=== PATIENT | female | born 1995 | race Caucasian/White ===

== ENCOUNTER → 2018-03-06 13:11 | Outpatient (CLI) | payer MEDICAID, SELFPAY ==
[2018-03-06 17:35] LABS: Chlamydia Trachomatis by PCR Negative (Negative); Neisserai gonorrhoeae by PCR Negative (Negative); Probe Check PASS; Sample Adequacy Control PASS; Specimen Processing Control PASS
[2018-03-13 11:14] LABS: HPV Reflexed? NOT INDICATED
== END ==
PROVIDERS: Family Provider Pediatrics; PCP Pediatrics; Visit Provider Obstetrics & Gynecology
DX: Z12.4 Encounter for screening for malignant neoplasm of cervix (principal); Z11.3 Encounter for screening for infections with a predominantly sexual mode of transmission
CPT/HCPCS: 87491; 87591; 88175; G0145

== ENCOUNTER → 2018-03-26 11:46 | Outpatient (CLI) | payer MEDICAID, SELFPAY ==
[2018-03-26 15:29] LABS: Color, Urine Yellow (Yellow); Glucose, Dipstick Normal (Normal); Ketone-Dipstick Negative (Negative); Leukocyte Esterase-Dipstick Negative /ul (Negative); Nitrite-Dipstick Negative (Negative); Occult Blood-Urine Negative /ul (Negative); Protein-Dipstick Negative (Negative); Specific Gravity, Urine 1.005 (1.002-1.030); Urine Bilirubin Dipstick Negative (Negative); Urine Clarity Clear (Clear); Urine Urobilinogen Normal (Normal)
[2018-03-26 15:42] LABS: Thyroid Stim Hormone (TSH) 1.34 uIU/mL (0.358-3.74)
[2018-03-26 15:45] LABS: Absolute Neutrophil Count 4.3 X10^3/uL (2.0-7.7); Basophil# 0.01 X10^3/uL; Basophil% 0.2 % (0-1); Eosinophil# 0.06 X10^3/uL; Hematocrit 40.7 % (37-47); Hemoglobin 13.3 g/dl (12.0-15.0); Lymphocyte % 22.4 % (19-41); Mean Corp Hgb Conc 32.7 g/gl (32-36); Mean Corpuscular Hgb 29.4 pg (27.0-32.0); Mean Corpuscular Volume 89.8 fL (81-99); Mean Platelet Vol. 11.1 fl (6.2-12.0); Monocyte# 0.48 X10^3/uL; Monocyte% 7.7 % (0-10); Neutrophil % 68.5 % (47-70); Platelet Count 202 K/mm3 (150-450); RBC Distribution Width CV 12.7 % (11.6-14.6); RBC Distribution Width SD 40.8 fl (35.1-43.9); Red Blood Count 4.53 M/mm3 (4.2-5.4); White Blood Count 6.3 K/mm3 (4.4-11.0)
[2018-03-26 15:48] LABS: Amphetamine Urine VISTA NEGATIVE (<1000 ng/mL); Barbiturate Urine VISTA NEGATIVE (< 200 ng/mL); Benzodiazepine Urine VISTA NEGATIVE (< 200 ng/mL); Cocaine Urine VISTA NEGATIVE (< 300 ng/mL); Ecstacy Urine VISTA NEGATIVE (< 500 ng/mL); Methadone Urine VISTA NEGATIVE (< 300 ng/mL); PCP Urine VISTA NEGATIVE (< 25 ng/mL); THC Urine VISTA NEGATIVE (< 50 ng/mL); Vista UDS pH Range 7
[2018-03-26 15:57] LABS: POSITIVE COUNT NO; POSITIVE DIFFERENTIAL NO; POSITIVE MORPHOLOGY NO
[2018-03-26 16:15] LABS: COTININE Drug Screen Negative (<200 ng/mL)
[2018-03-26 16:24] LABS: HIV - WCH Non-Reactive (Nonreactive); Rubella IgG 393.4 IU/mL
[2018-03-28 03:49] LABS: Prenatal RPR NONREACTIVE (NONREACTIVE)
[2018-03-31 12:54] LABS: HEPATITIS B SURFACE AG Negative (Negative); Hep C Antibodies <0.1 s/co ratio (0.0-0.9); V-Zoster IgG (Immunity) 376 index (Immune >165)
== END ==
PROVIDERS: Visit Provider Obstetrics & Gynecology
DX: Z34.81 Encounter for supervision of other normal pregnancy, first trimester (principal)
CPT/HCPCS: 36415; 80307; 81002; 84443; 85025; 86703; 86762; 86787; 86803; 87340

== ENCOUNTER → 2018-08-01 08:50 | Outpatient (CLI) | payer MEDICAID, SELFPAY ==
[2018-08-01 12:02] LABS: Hematocrit 35.2 % (37-47); Hemoglobin 11.7 g/dl (12.0-15.0); Mean Corp Hgb Conc 33.2 g/gl (32-36); Mean Corpuscular Hgb 30.8 pg (27.0-32.0); Mean Corpuscular Volume 92.6 fL (81-99); Mean Platelet Vol. 10.8 fl (6.2-12.0); Platelet Count 185 K/mm3 (150-450); RBC Distribution Width CV 12.6 % (11.6-14.6); RBC Distribution Width SD 42.5 fl (35.1-43.9); White Blood Count 7.8 K/mm3 (4.4-11.0)
[2018-08-01 12:03] LABS: Scan Indicated on CBC? Y/N NO
[2018-08-01 12:05] LABS: Glucose Challenge Gest 1H 50g 84 mg/dL (70-140)
== END ==
PROVIDERS: Visit Provider Obstetrics & Gynecology
DX: Z34.82 Encounter for supervision of other normal pregnancy, second trimester (principal)
CPT/HCPCS: 36415; 82950; 85027; 86850

== ENCOUNTER → 2018-09-26 11:09 | Outpatient (CLI) | payer MEDICAID, SELFPAY ==
[2017-06-01 16:16] VITALS: BMI 22.6
== END ==
PROVIDERS: Visit Provider Obstetrics & Gynecology
DX: Z36.85 Encounter for antenatal screening for Streptococcus B (principal)
CPT/HCPCS: 87081

== ENCOUNTER 2018-10-27 19:50 | Outpatient (CLI) | payer MEDICAID, SELFPAY ==
[2018-10-27 21:09] LABS: ROM Internal Control Test YES-OK TO RESULT pt. (Internal QC); ROM Patient Test Negative (Negative); Record Kit Lot#, ROM+ J7836
[2018-10-27 22:28] VITALS: BMI 26.7
--- NOTE | 2018-11-05 12:29 | OB.TRI.NOTE ---
History of Present Illness Date of Service: 10/27/18 Was patient seen by the physician?: No Reason For Visit: R/O LABOR Date of Service: 10/27/18 Final MARCO A: 10/21/18 Final MARCO A Source: US <20 weeks Gestational age: 40 Weeks and 6 Days History of Present Illness: 23 yo female presents for labor check. Scheduled for postdates induction soon. Allergies No Known Allergies Allergy (Verified 10/28/18 07:39) Laboratory Studies: Laboratory Tests 10/27/18 Range/Units 20:35 Vag Amniotic Fld Detect Negative (Negative) NST - FHR Rate Baby A Variability:: Moderate Accelerations:: 15 x 15 Decelerations:: None NST Reactive:: Yes, Appropriate for gestational age FHR Category:: Category I Uterine Activity:: irreg UCs. Impression/Plan False labor NST reactive Home. Return for induction of labor as planned.
== END 2018-10-27 23:00 | disposition home or self-care (01) ==
LOC: WPOUT 20:13 → WP 20:16
PROVIDERS: Visit Provider Obstetrics & Gynecology
DX: O47.1 False labor at or after 37 completed weeks of gestation (principal); Z3A.40 40 weeks gestation of pregnancy
CPT/HCPCS: 59025; 59050; 84112; 99218; G0378

== ENCOUNTER 2018-10-28 07:00 | Inpatient (IN) | payer MEDICAID, SELFPAY ==
[2017-06-01 16:16] VITALS: BMI 22.6
[2018-10-27 22:28] VITALS: BMI 26.7
[2018-10-28 07:38] VITALS: BMI 26.7
[2018-10-28] MEDS: Lactated Ringers 1,000 ML 50 ML IV ×2 (07:45→14:00)
[2018-10-28 07:50] LABS: Absolute Lymphocyte Count 1.52 X10^3/ul (0.83-4.51); Absolute Neutrophil Count 4.2 X10^3/uL (2.0-7.7); Basophil# 0.01 X10^3/uL; Basophil% 0.2 % (0-1); Eosinophil# 0.05 X10^3/uL; Eosinophils% 0.8 % (0-5); Hematocrit 35.8 % (37-47); Hemoglobin 11.6 g/dl (12.0-15.0); Lymphocyte # 1.52 X10^3/ul (4.0); Lymphocyte % 23.7 % (19-41); Mean Corp Hgb Conc 32.4 g/gl (32-36); Mean Corpuscular Hgb 28.6 pg (27.0-32.0); Mean Corpuscular Volume 88.4 fL (81-99); Mean Platelet Vol. 11.4 fl (6.2-12.0); Monocyte# 0.59 X10^3/uL; Monocyte% 9.2 % (0-10); Neutrophil # 4.24 X10^3/uL (2.7-7.7); Neutrophil % 65.9 % (47-70); Platelet Count 149 K/mm3 (150-450); RBC Distribution Width CV 12.7 % (11.6-14.6); RBC Distribution Width SD 40.6 fl (35.1-43.9); Red Blood Count 4.05 M/mm3 (4.2-5.4); White Blood Count 6.4 K/mm3 (4.4-11.0)
[2018-10-28] MEDS: Oxytocin 30 units/NS 500 ml 30 UNITS/500 ML IV.SOLN IV (07:55)
[2018-10-28 07:58] LABS: POSITIVE COUNT NO; POSITIVE DIFFERENTIAL NO; POSITIVE MORPHOLOGY NO
[2018-10-28] MEDS: Nalbuphine 10 MG/ML Ampul IV (12:01)
[2018-10-28] MEDS: fentaNYL-bupivacaine (epidural) 100 ML BAG EPIDURAL (14:10)
[2018-10-28] MEDS: Ondansetron 4 MG/2 ML Vial IV (15:54)
[2018-10-28] MEDS: Oxytocin 30 units/NS 500 ml 30 UNITS/500 ML IV.SOLN 334 UNITS IV (16:50)
--- NOTE | 2018-10-28 17:10 | PCM.OB.VAG ---
Vaginal Delivery Maternal Presentation: Medically Indicated Induction 41 weeks ega for induction of labor Method of Induction: Pitocin Medical Reason for Induction: Post term Amniotic Membrane Rupture Type: Artificial Rupture of Membrane time: 803 Amniotic Fluid Description: Clear Final MARCO A: 10/21/18 Final MARCO A Source: US <20 weeks Gestational age: 41 Weeks and 0 Days Date of Procedure: 10/28/18 Pre-Operative Diagnosis: Labor Post-Operative Diagnosis: same Surgery/ Procedure Performed: Spontaneous Vaginal Delivery Anesthesiologist: Alex Portillo Type of Anesthesia: Epidural Description of Procedure: Progressed with pitocin induction to FD then pushed over 10 contractions to deliver a live female without complication. Nares and mouth were suctioned at delivery. Delayed cord clamping was employed. There was an active cry within the first minute. Apgars were 8/9. The placenta delivered spontaneously intact with a centrally located 3VC. The uterus contracted well. Inspection revealed an intact cervix and upper vagina. A small first degree posterior vaginal/perneal tear was repaired with 2-0 vicryl suture. A small first degree left periurethral tear was repaired with 3-0 vicryl. Hemostasis was good. Presentation: Vertex Placental Delivery Description: Spontaneous Placenta Disposition: [facility] Percentage of Placenta Abruption: 0 Cord Vessel Description: 3 Vessels Nuchal Cord Compression: Without compression Cord Entanglement: None Drain: Hines to straight drain Estimated Blood Loss: 300cc A gender: Female (1 minute): 8 (5 minute): 9 Episiotomy Description: None Laceration: Midline, Periurethral Extnsion/lac, Perineal Extension/lac, Vaginal Extension/lac, 1st degree Medications given after delivery: IV Pitocin Complications: None
--- NOTE | 2018-10-28 17:17 | DCINST_ITS ---
Discharge Diet: No Restrictions Discharge Activity: Return to Normal Activity, May Drive, May not drive while taking narcotic pain medications., May Shower Return to work on:: 12/28/18 May shower in (days): 0 May resume sexual activity in: 6 weeks Call your doctor if your incision/area has: Sudden Increased Bleeding, Increased Pain/ Swelling, Increased Redness, Foul Smelling Discharge, Swelling at the incision site Call your doctor if you observe: Fever of 101 or Higher, Inability to urinate, Inability to have a bowel movement, Using more than one pad per hour, Shortness of breath, Chest pain, Calf discomfort, Uncontrolled pain Cleanse incision/area with: Soap & Water Additional Instructions: If you experience any of the following, contact your healthcare provider. * Bleeding that soaks a pad every hour for 2 hours * Fever 100.4 or higher * Unrelieved incision or abdominal pain * Swelling, redness, discharge or bleeding from your incision or episiotomy site * Your incision begins to separate * Problems urinating (including inability to urinate or burning while urinating). * Visual changes * Severe headache * Flu-like symptoms * Pain or redness in one of both of your breasts * Pain, warmth, tenderness or swelling in your legs, especially the calf area * Frequent nausea and vomiting * Symptoms of depression or anxiety If you experience any of the following, call 911 or go to the nearest Emergency Room. * Chest pain * Problems breathing * Seizure activity * Partial or complete paralysis of a body part, slurred speech, weakness or drooping of the face, or a sudden inability to walk or hold your balance Allergies/Adverse Reactions: Allergies No Known Allergies Allergy (Verified 10/28/18 07:39) Medications to take at Discharge Prenatabs FA 1 tab PO DAILY 10/27/18 Ibuprofen [Motrin] 600 mg PO Q6H PRN PRN #30 tab 10/28/18 The following prescriptions were given: Ibuprofen [Motrin] 600 mg PO Q6H PRN PRN #30 tab PRN Reason: pain or cramping Please Follow Up With: Boo Jefferson MD When: 6 weeks Primary Care Physician: Care Physician,No Primary [Primary Care Provider] - Test Results: Test results from this visit will be discussed in further detail at your follow- up appointment, if applicable.
[2018-10-28] MEDS: Oxytocin 30 units/NS 500 ml 30 UNITS/500 ML IV.SOLN 167 UNITS IV (17:20)
[2018-10-28 20:43] VITALS: BP 109/75; PULSE 78; RESP 18; TEMP 37.1
[2018-10-29 00:41] VITALS: BP 101/57; PULSE 90; RESP 18; TEMP 37.2
[2018-10-29 04:00] VITALS: BP 97/58; PULSE 69; RESP 16; TEMP 36.7
[2018-10-29 06:32] LABS: Hemoglobin 10.2 g/dl (12.0-15.0); Mean Corp Hgb Conc 32.9 g/gl (32-36); Mean Corpuscular Hgb 29.1 pg (27.0-32.0); Mean Corpuscular Volume 88.6 fL (81-99); Mean Platelet Vol. 11.3 fl (6.2-12.0); Platelet Count 130 K/mm3 (150-450); RBC Distribution Width CV 12.9 % (11.6-14.6); RBC Distribution Width SD 41.2 fl (35.1-43.9)
[2018-10-29 06:36] LABS: Scan Indicated on CBC? Y/N NO
--- NOTE | 2018-10-29 07:38 | PCM.PN.OB ---
Subjective: No specific complaints.. Objective: Afeb VSS Hgb stable on PP day#1. - Physical Exam General: Alert, Oriented x3, Cooperative, No apparent distress Lungs: Clear to auscultation, Normal air movement Cardiovascular: Regular rate, Regular Rhythm Abdomen: Soft, Non Tender, Non-Distended Extremities: No edema Skin: No rashes Neurological: Neuro grossly intact Psych/Mental Status: Normal Affect Comment: Lochia appropriate Vital Signs Temp Pulse Resp BP 98.0 F 69 16 97/58 L 10/29/18 04:00 10/29/18 04:00 10/29/18 04:00 10/29/18 04:00 Weight: 156 lb Body Mass Index (BMI) 26.7 Intake and Output for Last 24 Hours 10/27/18 10/28/18 10/29/18 23:59 23:59 23:59 Intake Total 1500 / 1500 Output Total 1200 / 1200 800 / 800 Balance 300 / 300 -800 / -800 Laboratory Tests Past 24 Hrs 10/28/18 10/28/18 10/29/18 07:30 07:30 05:40 WBC 6.4 10.0 RBC 4.05 L 3.50 L Hgb 11.6 L 10.2 L Hct 35.8 L 31.0 L MCV 88.4 88.6 MCH 28.6 29.1 MCHC 32.4 32.9 RDW 12.7 12.9 RDW Differential 40.6 41.2 Plt Count 149 L 130 L MPV 11.4 11.3 Immature Gran % (Auto) 0.200 Neut % (Auto) 65.9 Lymph % (Auto) 23.7 [place] % (Auto) 9.2 Eos % (Auto) 0.8 Baso % (Auto) 0.2 Absolute Neuts (auto) 4.2 Absolute Lymphs (auto) 1.52 Total Counted Not Reportable Blood Type O NEGATIVE Antibody Screen NEGATIVE Medical Necessity - Tobacco Use Smoking Status: Former smoker Assessment/Plan Doing well on PP day#1. Continue routine PP care.
[2018-10-29] MEDS: Acetaminophen 500 MG Tablet 1000 MG PO (08:14)
[2018-10-29 08:20] VITALS: BP 111/55; PULSE 66; RESP 16
[2018-10-29] MEDS: Prenatal Vits Tablet 1 TABLET PO (12:34)
[2018-10-29 12:36] VITALS: BP 108/56; PULSE 68; RESP 16; TEMP 36.9
--- NOTE | 2018-10-29 14:55 | CASEMGMT ---
Addendum entered and electronically signed by Abi Romo 10/30/18 09:37: Reviewed and approve DRY CLEANING MANAGER student internal communications specialist documentation below. -JAVIER Cifuentes, TELEGRAPHIC TYPEWRITER OPERATOR CHIEF Original Note: Social Work Labor and Delivery Date of referral: 10/29/18 Time of Referral: 830am Referred by: charge nurse verbal notification Date of Intervention: 10/29/18 Time of intervention: 230pm Reason for referral: marijuana usage admission at care visit. History obtained from: medical record, mother of baby (MOB) Lisandra Tee. Household composition: CHARLY lives at home with her parents Kristopher and Barbi. MOB reports no safety concerns in this home or domestic violence. MOB also reports no domestic violence with FOB. Patient's Parent/ guardian status: MOB and Father of baby Edson Dobbs (FOB) have been together for 1 year. DAMIEN has 3 other daughters ages 5, 8 and 12. Medical History: MOB is to 1 after of baby Roque. MOB started care at 10 weeks. Baby roque was born on 10/28/18 at 7lbs and 5oz with scores of 8 and 9. Educational Status: CHARLY has completed high school and reports to be able to read, write, and comprehend. Financial Status: CHARLY has been employed at [employer] in [place] since July 2018. CHARLY will be taking 6-8 weeks off work. Infant supplies: MOB reports to have car seat, crib, clothing, diapers, wipes, and a breast pump. Childcare/givers: MOB and FOB will be primary caregivers. MOB reports that parents Kristopher and Barbi plus Edson's parents will be childcare givers. Transportation: MOB denies any issues with transportation. Programs/agencies involved: CHARLY is connected with [facility]. MOB denied [facility] referral. Children Services/ Legal Issues: MOB does not have any history with children services or legal issues. MOB could not confirm or deny if FOB has any history with children services or legal issues. Behavior Health Issues: Mental Health History: CHARLY has been diagnosed with depression. MOB has not taken medication but was prescribed in the past. MOB chose not to take medication as wanted to get better on own and began to do so with coping. MOB denies any past or current thoughts or attempts of suicide. 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 MOB reported to have used marijuana in the beginning of one time and only took two hits. MOB denies any other illicit drug usage. MOB does not intend to use any drugs every again. Family History: MOB did not identify any concerns with family history. Drug Screens: MOB tested negative at [facility] visit on 03/26/18 and again at delivery on 10/28/18. Baby Roque urine tested negative at delivery and meconium is pending at this time. Family/Social Stressors: MOB did not identify any stressors. MOB and FOB just got approved with [employer] housing and plan to move in together soon which can potentially be a stressor. Support System: MOB reports entire family on both mother and father's side to be a support system. Edson and family are also supports. PPD/ Shaken Baby/ Safe sleeping: social worker masters internal communications specialist reviewed and spoke with MOB about safe sleeping and shaken baby and MOB understood information. PPD packet reviewed and MOB informed of signs and symptoms. ASSESSMENT: MOB was alone in room with bethany Clifford. MOB was caring for Roque and finished changing the diaper. MOB answered all questions appropriately and was calm during assessment. MOB spoke highly of FOB with smile. MOB reported to have had depression diagnosis and to have seen a therapist roughly 3 times but stopped going as she does not like to open up. MOB spoke about coping strategies to include cleaning, walking, listening to music, and singing. MOB also reported to occasionally not talk about the topic and internalize her thoughts to cope and move forward. When asked about drug usage, MOB disclosed that there was short 6 month relationship that influenced her to use meth in June 2017. MOB quit using meth on own with no treatment and has not used since June 2017. MOB does not plan to use again. MOB feels was never addicted to meth. MOB reported to have taken just two hits of marijuana at start of . MOB reports that is only time to have used marijuana during . MOB has no plans to use any drugs ever again and reports to not even like being high. MOB reported that if ever does use again there will be responsible and sober individual caring for baby Roque such as her parents Kristopher and Barbi. MOB is looking forward to taking baby Roque home. MOB cared for Roque with attention and gentle handling and comforting. PLAN: MOB to home with baby. [facility] packet provided. PDD/WIC/HMG information provided. No other services indicated or requested at this time. -Brandy Colon, DRY CLEANING MANAGER Student Soda Column Operator.
[2018-10-29 20:00] VITALS: BP 118/65; PULSE 72; RESP 16; TEMP 36.8
[2018-10-29 20:03] VITALS: BP 118/65; PULSE 72; RESP 16; TEMP 36.8
== END 2018-10-29 20:55 | disposition home or self-care (01) | DRG 560 ==
PROVIDERS: Admitting Provider Obstetrics & Gynecology; Referring Provider Obstetrics & Gynecology; Visit Provider Obstetrics & Gynecology
DX: O48.0 Post-term pregnancy (principal); Z3A.41 41 weeks gestation of pregnancy; O69.81X0 Labor and delivery complicated by cord around neck, without compression, not applicable or unspecified; O70.0 First degree perineal laceration during delivery; O71.5 Other obstetric injury to pelvic organs; Z37.0 Single live birth; Z87.891 Personal history of nicotine dependence; O47.1 False labor at or after 37 completed weeks of gestation
CPT/HCPCS: 59025; 59050; 84112; 85025; 85027; 86850; 86900; 99218; J7120; G0378; J2405

== ENCOUNTER → 2019-03-12 14:12 | Outpatient (CLI) | payer MEDICAID, SELFPAY ==
[2019-03-12 14:08] VITALS: BMI 26.7
--- NOTE | 2019-03-12 14:15 | RAD_ITS ---
STUDY: X-RAY - LEFT KNEE REASON FOR EXAM: Left knee pain, no specific injury. TECHNIQUE: 4 view(s) of the knee. COMPARISON: None. FINDINGS: Normal visualized distal femur. Normal visualized proximal tibia and fibula. Normal proximal tibiofibular articulation. Normal medial femorotibial compartment. Normal lateral femorotibial compartment. Normal patellofemoral articulation. The soft tissue structures are unremarkable. RAD/Knee 4 or More Views IMPRESSION: Normal x-ray examination of the left knee. Electronically Signed: Hugo Dean MD at 14:38 EDT Tel , Service support ,
== END ==
PROVIDERS: Referring Provider Orthopaedic Surgery; Visit Provider Orthopaedic Surgery
DX: M25.562 Pain in left knee (principal)
CPT/HCPCS: 73564

== ENCOUNTER 2019-03-13 07:18 | Outpatient (RCR) | payer MEDICAID, SELFPAY ==
[2019-03-12 14:08] VITALS: BMI 26.7
--- NOTE | 2019-03-13 08:07 | HP.PTEVAL_ITS ---
Patient's Visit Information ABELARDO WYATT is a 24 year old F referred to Physical Therapy by Elvia Haro DO with a diagnosis of Left Knee Pain. Date of Evaluation: 03/13/19 Physical Therapist: Lise Hicks DPT - Visit Plan Frequency: 2x /Week Duration: 4 Weeks Plan: Focus on LE and core strength/stabilization- lateral tracking of the patella. 03/13/19 HEP:SLS keeping pelvis level, quad set with brace on, SLR with brace on, Clams with blue tband - Subjective Findings: Left Knee when she goes on long walks it gets shaky and then it won't vegetable picker- it locks up and collapses. Saw Dr. Haro who did x-rays and told her ACL looks good but tender along the joint line. Insidious onset. Is taking her 6 year old on walks but does not do any other forms of exercises. Unever terrain. Pain is located along the back and along the lateral joint line and patella. Worst: 03/07 Agg: long walks, stairs, rocking her baby back and forth. Baby is 4 months old. Eases: sitting, resting. When it locks up she has to give it a minute and then it lets go on its own. Does radiate to the calf but not do the ankle. No N/T unless she is walking long distances. Describes the pain as achy and burning. No injection or MRI sent to therapy and then see how it goes. 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 Could do many different station or one only. Dr. Haro gave her a brace that she wears when she is active. Sleep: not disturbed. PMHx: Right ACL replacement 2014 Meds: Ibuprofen as needed for FLANAGAN but not for her knee. Not nursing - Objective Posture: FH, RS- can correct but does not maintain. Gait: no deviation noted. Stairs: asc/desc 8 recip with no HR- does demonstrate poor eccentric control with descent. SLS: 15 seconds increase muscle activation and pelvis drops immediatly- reports significant instability and discomfort. HR/TR: able but reports tightness- does have full ROM. Palpation: tender along lateral joint line- distal patellar tendon on the lateral side and along lateral patella. Strength: Ankle: 5/5, Knee: 4+/5, Hip flexion: 4/5 with pain, Abd: 4/5 with pain, Clam to test glut med:4-/5, Add: 4+/5, IR/ER: 4-/5 Core: fair minus. Flex: HS: moderate, Gastroc: moderate, Quad: moderate. ROM: 0-130 degrees - Goals Goal 1:: Patient will be I with HEP and progression Goal Time Frame: 4-6 Weeks Goal 2:: Patient will asc/desc 8 stairs recip with no pain and good control Goal Time Frame: 4-6 Weeks Goal 3:: Patient will report no locking or buckling of the knee for 1 week Goal Time Frame: 4-6 Weeks Goal 4:: Patient will maintain proper posture t/o tx session to demo increased core s/s Goal Time Frame: 4-6 Weeks Goal 5:: Patient will demo 5/5 strength in LE where deficit Goal Time Frame: 4-6 Weeks - Rehabilitation Potential Physical Therapy Diagnosis: Patient presents with hypomobility- she has decreased strength, flex and muscular endurance leading to increased pain with ADL's. Rehabilitation Potential: Good - Anticipated Interventions Patient/Client Instruction: Educate patient on: Benefits of Fitness Program Therapeutic Exercise to Include: Strength training, Endurance training, Balance training, Coordination, Agility training, Body mechanics, Postural training, Flexibilty training, Gait and locomotor training, Dynamic Lumbar Stabilization For the Purpose of:: To improve muscle performance and motor function TENS: Yes Cryotherapy (ice pack, ice massage): Yes Thermo therapy (hot pack): Yes Ultrasound (thermal/non thermal): Yes For the Purpose of:: To decrease pain Thank you for the opportunity to evaluate your patient. For Medicare and Medicare HMO plans, please review the plan of care and approve it. It will need to be FAXED BACK to us at [phone] for Medicare purposes. For Medicare only, by signing this I certify the plan of care. Please let me know if there are questions or concerns regarding this plan of care. Physician Signature: Date:
--- NOTE | 2019-05-08 08:08 | HP.PT.NRP ---
HP - Discharge Summary (1) - Patient Information ABELARDO WYATT was seen in my office for initial evaluation on 03/13/19. The following Plan of Care was established for this patient: Initial Frequency: 2x /Week Initial Duration: 4 Weeks - Anticipated Interventions Patient/Client Instruction: Educate patient on: Benefits of Fitness Program Therapeutic Exercise to Include: Strength training, Endurance training, Balance training, Coordination, Agility training, Body mechanics, Postural training, Flexibilty training, Gait and locomotor training, Dynamic Lumbar Stabilization For the Purpose of:: To improve muscle performance and motor function TENS: Yes Cryotherapy (ice pack, ice massage): Yes Thermo therapy (hot pack): Yes Ultrasound (thermal/non thermal): Yes For the Purpose of:: To decrease pain This patient was last seen in our office . Pertinent comments regarding their Physical therapy will appear below: Patient has not attended PT since IE- appropriate for dc return to MD for further evaluation. At this point I will be discontinuing this patient from physical therapy. I would be happy to see this patient again in the future if found appropriate by the physician. Thank you! Lies Hicks DPT
== END 2019-03-13 19:00 | disposition home or self-care (01) ==
LOC: PT 07:18
PROVIDERS: Referring Provider Orthopaedic Surgery; Visit Provider Orthopaedic Surgery
DX: M25.562 Pain in left knee (principal)
CPT/HCPCS: 97110; 97161

== ENCOUNTER → 2019-07-16 11:31 | Outpatient (CLI) | payer MEDICAID, SELFPAY ==
[2019-03-12 14:08] VITALS: BMI 26.7
== END ==
PROVIDERS: Referring Provider Obstetrics & Gynecology; Visit Provider Obstetrics & Gynecology
DX: R87.612 Low grade squamous intraepithelial lesion on cytologic smear of cervix (LGSIL) (principal)

== ENCOUNTER → 2019-07-30 15:44 | Outpatient (CLI) | payer MEDICAID, SELFPAY ==
[2019-03-12 14:08] VITALS: BMI 26.7
[2019-07-30 17:24] LABS: Absolute Lymphocyte Count 1.47 X10^3/uL (0.83-4.51); Absolute Neutrophil Count 5.5 X10^3/uL (2.0-7.7); Basophil# 0.01 X10^3/uL; Basophil% 0.1 % (0-1); Eosinophil# 0.03 X10^3/uL; Eosinophils% 0.4 % (0-5); Hemoglobin 12.4 g/dL (12.0-15.0); Lymphocyte # 1.47 X10^3/ul (4.0); Lymphocyte % 19.7 % (19-41); Mean Corp Hgb Conc 33.5 g/dL (32-36); Mean Corpuscular Volume 89.4 fL (81-99); Mean Platelet Vol. 11.5 fl (6.2-12.0); Monocyte# 0.43 X10^3/uL; Monocyte% 5.8 % (0-10); NRBC Flagged by Analyzer 0 % (0-5); Neutrophil # 5.49 X10^3/uL (2.7-7.7); Neutrophil % 73.7 % (47-70); Platelet Count 191 K/mm3 (150-450); RBC Distribution Width CV 12.5 % (11.6-14.6); Red Blood Count 4.14 M/mm3 (4.2-5.4); White Blood Count 7.5 K/mm3 (4.4-11.0)
[2019-07-30 17:27] LABS: Color, Urine Yellow (Yellow); Glucose, Dipstick Normal (Normal); Ketone-Dipstick Negative (Negative); Leukocyte Esterase-Dipstick Negative /ul (Negative); Nitrite-Dipstick Negative (Negative); Occult Blood-Urine Negative /ul (Negative); Protein-Dipstick Negative (Negative); Specific Gravity, Urine 1.025 (1.002-1.030); Urine Bilirubin Dipstick Negative (Negative); Urine Clarity Clear (Clear); Urine Urobilinogen Normal (Normal)
[2019-07-30 17:42] LABS: Thyroid Stim Hormone (TSH) 0.88 uIU/mL (0.358-3.74)
[2019-07-30 17:55] LABS: Amphetamine Urine VISTA NEGATIVE (<1000 ng/mL); Barbiturate Urine VISTA NEGATIVE (< 200 ng/mL); Benzodiazepine Urine VISTA NEGATIVE (< 200 ng/mL); Cocaine Urine VISTA NEGATIVE (< 300 ng/mL); Ecstacy Urine VISTA NEGATIVE (< 500 ng/mL); Methadone Urine VISTA NEGATIVE (< 300 ng/mL); PCP Urine VISTA NEGATIVE (< 25 ng/mL); THC Urine VISTA NEGATIVE (< 50 ng/mL); Vista UDS pH Range 6
[2019-07-31 09:13] LABS: HIV - WCH Non-Reactive (Nonreactive); Hepatitis B Surface Antigen Non-Reactive (Nonreactive); Hepatitis C Antibody Non-Reactive (Nonreactive); Rubella IgG 251.1 IU/mL
[2019-08-03 12:02] LABS: Prenatal RPR NONREACTIVE (NONREACTIVE)
== END ==
PROVIDERS: Visit Provider Obstetrics & Gynecology
DX: Z34.82 Encounter for supervision of other normal pregnancy, second trimester (principal)
CPT/HCPCS: 36415; 80307; 81002; 84443; 85025; 86703; 86762; 86803; 87340

== ENCOUNTER → 2019-11-12 | Outpatient (CLI) | payer MEDICAID, SELFPAY ==
[2019-03-12 14:08] VITALS: BMI 26.7
[2019-11-12 17:46] LABS: Hematocrit 32.7 % (37-47); Hemoglobin 10.7 g/dL (12.0-15.0); Mean Corp Hgb Conc 32.7 g/dL (32-36); Mean Corpuscular Hgb 29.8 pg (27.0-32.0); Mean Corpuscular Volume 91.1 fL (81-99); Mean Platelet Vol. 11.5 fl (6.2-12.0); Platelet Count 157 K/mm3 (150-450); RBC Distribution Width CV 12.4 % (11.6-14.6); RBC Distribution Width SD 41.3 fl (35.1-43.9); Red Blood Count 3.59 M/mm3 (4.2-5.4); White Blood Count 5.5 K/mm3 (4.4-11.0)
[2019-11-12 17:56] LABS: Glucose Challenge Gest 1H 50g 68 mg/dL (70-140)
[2019-11-13 15:34] LABS: Ferritin 5 ng/mL (8-252)
== END | disposition home or self-care (01) ==
PROVIDERS: Visit Provider Obstetrics & Gynecology
DX: O99.013 Anemia complicating pregnancy, third trimester (principal); D64.9 Anemia, unspecified; Z3A.00 Weeks of gestation of pregnancy not specified
CPT/HCPCS: 82728; 82950; 85027; 86850

== ENCOUNTER → 2020-01-07 | Outpatient (CLI) | payer MEDICAID, SELFPAY ==
[2019-03-12 14:08] VITALS: BMI 26.7
== END | disposition home or self-care (01) ==
PROVIDERS: Referring Provider Obstetrics & Gynecology; Visit Provider Obstetrics & Gynecology
DX: Z36.85 Encounter for antenatal screening for Streptococcus B (principal)
CPT/HCPCS: 87081

== ENCOUNTER → 2020-01-27 | Outpatient (CLI) | payer MEDICAID, SELFPAY ==
[2019-03-12 14:08] VITALS: BMI 26.7
== END | disposition home or self-care (01) ==
LOC: LABSPEC 11:43
PROVIDERS: Referring Provider Obstetrics & Gynecology; Visit Provider Obstetrics & Gynecology
DX: Z11.59 Encounter for screening for other viral diseases (principal)
CPT/HCPCS: 87635; G2023; U0003

== ENCOUNTER 2020-02-01 06:58 | Inpatient (IN) | payer MEDICAID, SELFPAY ==
[2019-03-12 14:08] VITALS: BMI 26.7
[2020-02-01] VITALS (42 sets, daily range): BP systolic 98–169; BP diastolic 53–85; PULSE 47–96; RESP 14–16; TEMP 36.5–37.2; O2SAT 97–100; BMI 26.7
[2020-02-01] MEDS: Lactated Ringers 1,000 ML 50 ML IV (07:15)
[2020-02-01 07:50] LABS: Absolute Lymphocyte Count 1.42 X10^3/uL (0.83-4.51); Absolute Neutrophil Count 2.8 X10^3/uL (2.0-7.7); Basophil# 0.01 X10^3/uL; Basophil% 0.2 % (0-1); Eosinophil# 0.05 X10^3/uL; Hematocrit 37.1 % (37-47); Hemoglobin 12.1 g/dL (12.0-15.0); Lymphocyte # 1.42 X10^3/ul (4.0); Lymphocyte % 29.8 % (19-41); Mean Corp Hgb Conc 32.6 g/dL (32-36); Mean Corpuscular Volume 92.1 fL (81-99); Monocyte# 0.51 X10^3/uL; Monocyte% 10.7 % (0-10); NRBC Flagged by Analyzer 0 % (0-5); Neutrophil # 2.77 X10^3/uL (2.7-7.7); Neutrophil % 58.1 % (47-70); Platelet Count 134 K/mm3 (150-450); RBC Distribution Width CV 13.2 % (11.6-14.6); RBC Distribution Width SD 44.9 fl (35.1-43.9); Red Blood Count 4.03 M/mm3 (4.2-5.4); White Blood Count 4.8 K/mm3 (4.4-11.0)
--- NOTE | 2020-02-01 08:06 | HP.PCM_ITS ---
- Problem List (1) 39 weeks gestation of Status: Acute History Date of Admission: 02/01/20 Final MARCO A: 02/03/20 Final MARCO A Source: US <20 weeks Gestational age: 39 Weeks and 5 Days History of this : This is a 25 year-old, G [2], P [1], at 39 weeks gestational age. Allergies No Known Allergies Allergy (Verified 10/28/18 07:39) Home Medications: Home Medications progesterone micronized 100 mg capsule 100 mg PO QAM 03/12/19 Smoking Status: Former smoker Alcohol: None Number of Fetus(es): 1 NST - FHR Rate Baby A Baseline: 130 Variability:: Moderate Accelerations:: 15 x 15 Decelerations:: None NST Reactive:: Yes FHR Category:: Category I Uterine Activity:: quiet History Past Pregnancies: PRIOR DELIVERY HISTORY DEL DATE GEST LAB WT LB WT OZ TYPE ANES LABOR TX Nov 14 41 8 7 5 Vag Epidural No Labs: Labs 02/01/20 07:15 WBC 4.8 RBC 4.03 L Hgb 12.1 Hct 37.1 MCV 92.1 MCH 30.0 MCHC 32.6 RDW Std Deviation 44.9 H RDW Coeff of Jeanna 13.2 Plt Count 134 L MPV 11.0 Immature Gran % (Auto) 0.200 Neut % (Auto) 58.1 Lymph % (Auto) 29.8 [place] % (Auto) 10.7 H Eos % (Auto) 1.0 Baso % (Auto) 0.2 Absolute Neuts (auto) 2.8 Absolute Lymphs (auto) 1.42 Nucleated RBC % 0 Expected Infant Delivery Method: Spontaneous Vaginal Number of Visits: 11 Review of Systems Constitutional: Denies: Chills, Fever, Weight Change HEENT: Denies: Head Aches, Sinus Congestion, Sinus Drainage Cardiovascular: Denies: Chest Pain, Palpitations Respiratory: Denies: Cough, Shortness of breath at rest, Sputum production Gastrointestinal: Denies: Abdominal Pain, Nausea, Vomiting Genitourinary: Denies: Dysuria Musculoskeletal: Denies: Joint Pain, Joint Tenderness Skin: Denies: Rash, Wounds Neurological: Denies: Numbness, Tingling, Focal weakness Psychiatric: Denies: Anxiety, Depression, Homicidal Ideations, Suicidal Ideations Hematologic/ Lymphatic: Denies: Easy Bruising, Easy Bleeding Physical Exam Vitals: Vital Signs Temp Pulse BP Pulse Ox 98.3 F 96 114/67 99 02/01/20 07:22 02/01/20 07:23 02/01/20 07:23 02/01/20 07:23 General: Alert, Oriented x3, No apparent distress HEENT: Atraumatic, Normocephalic. Negative for: Thyromegaly, Lymphadenopathy Cardiovascular: Regular rate, Regular Rhythm Lungs: Clear to auscultation Abdomen: Bowel Sounds Present, Gravid Neurological: Deep Tendon Reflexes 2+/4 and Symmetrical, Neuro grossly intact SCHOOL SERVICES OFFICER: Normal external genitalia. Negative for: Vulvar lesions Estimated gestational size: Appropriate for gestational size Presentation: Cephalic Cervix Dilation (cm): 3 Station: -1 - 50 Assessment/Plan All Active Problems 39 weeks gestation of (Acute) A/P: This is a 25 year-old, G [2], P [1], at 39 weeks gestational age. Elective IOL with AROM and Pitocin AROM with clear fluid SVE /-1 soft midposition Plans epidural for pain management Expect Procedure Criteria Procedure Type: Elective COVID Risk Discussion: The surgeon/proceduralist and patient have discussed in detail the risk of exposure to and/or potential harm posed by the COVID-19 virus with having a surgery/procedure at this time versus the risk of delaying the surgery/procedure . It is not possible to know either the risk of delaying the surgery or procedure or chance of getting an infection with perfect accuracy, but a joint decision was made between the patient and the surgeon/proceduralist to proceed at this time with the scheduled surgery/procedure as indicated on the consent form.
[2020-02-01] MEDS: Oxytocin 30 units/NS 500 ml 30 UNITS/500 ML IV.SOLN IV (08:20)
[2020-02-01] MEDS: Lactated Ringers 500 ML 999 ML IV (11:32)
[2020-02-01] MEDS: Lactated Ringers 1,000 ML 200 ML IV (12:37)
[2020-02-01] MEDS: fentaNYL-bupivacaine (epidural) 100 ML BAG EPIDURAL (12:41)
[2020-02-01] MEDS: Oxytocin 30 units/NS 500 ml 30 UNITS/500 ML IV.SOLN 334 UNITS IV (14:28)
--- NOTE | 2020-02-01 14:56 | PCM.OPRPT ---
Problem List (1) 39 weeks gestation of Status: Acute Vaginal Delivery Maternal Presentation: Elective Induction Method of Induction: Pitocin, Amniotomy Amniotic Membrane Rupture Type: Artificial Amniotic Fluid Description: Clear Final MARCO A: 02/03/20 Final MARCO A Source: US <20 weeks Gestational age: 39 Weeks and 5 Days doctor who attended delivery (if requested by OB): Annamaria Samuel Date of Procedure: 02/01/20 Pre-Operative Diagnosis: IOL Post-Operative Diagnosis: S/P Surgery/ Procedure Performed: Spontaneous Vaginal Delivery Type of Anesthesia: Epidural Description of Procedure: Spontaneous vaginal delivery of a viable male infant with Apgars of 7/9 from an occiput anterior presentation with clear amniotic fluid and normal three-vessel placenta. No episiotomy. Second-degree degree midline laceration repaired with 3-0 rapide suture under epidural. Severe shoulder dystocia noted with Jamey maneuver, suprapubic pressure, and partial Cantor corkscrew maneuver completed before delivering the shoulder and baby after approximately 1 minute, 17 seconds of life. Baby was able to grasp with both hands and all fingers. [facility] aviation boatswain's mate. Presentation: Vertex, MARLYS Placental Delivery Description: Spontaneous Placenta Disposition: [facility] Cord Vessel Description: 3 Vessels Cord Entanglement: Around neck x 1, loose Estimated Blood Loss: 250 A gender: Male (1 minute): 7 (5 minute): 9 Episiotomy Description: None Laceration: Perineal Extension/lac, 2nd degree Medications given after delivery: IV Pitocin
--- NOTE | 2020-02-01 19:56 | DCINST_ITS ---
Discharge Diet: No Restrictions Discharge Activity: Return to Normal Activity, May not drive while taking narcotic pain medications., May Shower May resume sexual activity in: 4-6 weeks Additional Activity Instructions:: Nothing in the vagina for 4-6 weeks. You may return to work/school in 6 weeks. Call your doctor if your incision/area has: Continuous Slow Oozing, Sudden Increased Bleeding, Increased Pain/ Swelling, Increased Redness, Foul Smelling Discharge Additional Instructions: If you experience any of the following, contact your healthcare provider. * Bleeding that soaks a pad every hour for 2 hours * Fever 100.4 or higher * Unrelieved incision or abdominal pain * Swelling, redness, discharge or bleeding from your incision or episiotomy site * Your incision begins to separate * Problems urinating (including inability to urinate or burning while urinating). * Visual changes * Severe headache * Flu-like symptoms * Pain or redness in one of both of your breasts * Pain, warmth, tenderness or swelling in your legs, especially the calf area * Frequent nausea and vomiting * Symptoms of depression or anxiety If you experience any of the following, call 911 or go to the nearest Emergency Room. * Chest pain * Problems breathing * Seizure activity * Partial or complete paralysis of a body part, slurred speech, weakness or drooping of the face, or a sudden inability to walk or hold your balance Allergies/Adverse Reactions: Allergies No Known Allergies Allergy (Verified 10/28/18 07:39) Medications to take at Discharge progesterone micronized 100 mg capsule 100 mg PO QAM 03/12/19 Please Follow Up With: Glendy Gilliland CNM When: Call to make an appointment with your CNM for a 2 week telehealth visit and a 6 week routine visit. Primary Care Physician: Care Physician,No Primary [Primary Care Provider] - Test Results: Test results from this visit will be discussed in further detail at your follow- up appointment, if applicable.
[2020-02-02 03:04] VITALS: BP 106/66; PULSE 43; RESP 14; TEMP 36.6
[2020-02-02] MEDS: Ibuprofen 600 MG Tablet PO (06:07)
[2020-02-02 08:30] VITALS: BP 93/48; PULSE 52; RESP 16; TEMP 36.6; O2SAT 96
[2020-02-02] MEDS: Acetaminophen 500 MG Tablet 1000 MG PO (08:34)
--- NOTE | 2020-02-02 08:50 | PCM.PN.OB ---
Subjective: Feeling well today. Cramping with , but okay with Motrin. Passing flatus. Up in room well and urinating fine. Denies heavy bleeding or severe pain. Objective: VSS. Fundus is firm, midline, u/1. Lochia rubra moderate. - Physical Exam Vitals/I&O's: Vital Signs Temp Pulse Resp BP Pulse Ox 97.9 F 43 L 14 106/66 99 02/02/20 03:04 02/02/20 03:04 02/02/20 03:04 02/02/20 03:04 02/01/20 13:54 Oxygen Delivery Method Room Air Weight: 70.76 kg Body Mass Index (BMI) 26.7 Intake and Output for Last 24 Hours 01/31/20 02/01/20 02/02/20 23:59 23:59 23:59 Intake Total 2628.10 / 2628.10 Output Total 1850 / 1850 Balance 778.10 / 778.10 General: Alert, Oriented x3, Cooperative HEENT: Atraumatic, PERRLA, EOMI, Normocephalic Neck: Supple, No JVD, Negative Carotid Bruits Lungs: Clear to auscultation, Normal air movement Cardiovascular: Regular rate, No murmurs Abdomen: Bowel Sounds Present, Soft, Non Tender Extremities: No edema, Capillary Refill Less than 3 Seconds Skin: No rashes, No breakdown Musculoskeletal: No Tenderness to Palpation of Joints or Extremities Neurological: Cranial nerves II-XII grossly intact Psych/Mental Status: Normal Affect, Appropriate Laboratory Results 02/01/20 07:15: Blood Type O NEGATIVE, Antibody Screen NEGATIVE Current Medications Acetaminophen (Tylenol) 1,000 mg PO Q8H PRN PRN PRN Reason: Pain Score 1-3 Last Admin: 02/02/20 08:34 Dose: 1,000 mg Documented by: Bisacodyl (Dulcolax) 10 mg RECTAL UD PRN PRN Reason: If no BM Hydrocortisone (Hytone) 1 applic TOPICAL TID PRN PRN; Protocol PRN Reason: Discomfort Ibuprofen (Motrin) 600 mg PO Q6H PRN PRN PRN Reason: Pain Score 1-3 Last Admin: 02/02/20 06:07 Dose: 600 mg Documented by: Methylergonovine Maleate (Methergine) 0.2 mg IM X1 PRN PRN Reason: Excess bleeding/uterine atony Ondansetron HCl (Zofran) 4 mg IV Q4H PRN PRN PRN Reason: Nausea Senna/Docusate Sodium (Senokot-S, Rosa-Colace) 1 - 2 tablet PO DAILY PRN PRN PRN Reason: Constipation Simethicone (Mylicon) 80 mg PO PCHS PRN PRN Reason: Indigestion/Stomach pain Sodium Chloride () 5 - 15 ml IV UD PRN PRN Reason: SALINE FLUSH Throat Lozenges (Dermoplast (Sp)) 1 applic TOPICAL 4X/DAY PRN PRN; Protocol PRN Reason: Pain/Inflammation Medical Necessity - Tobacco Use Smoking Status: Former smoker Assessment/Plan All Active Problems 39 weeks gestation of (Acute) A/P: S/P day #1 Normal involution and course Pain well controlled mother Dyad stable Educated on s/s of PP depression and when to call To discharge with 2 week telehealth and 6 week routine PP visits
[2020-02-02 11:40] VITALS: BP 95/53; PULSE 50; RESP 16; TEMP 36.3; O2SAT 95
[2020-02-02 16:45] VITALS: BP 102/63; PULSE 57; RESP 18; TEMP 36.3; O2SAT 97
== END 2020-02-02 17:15 | disposition home or self-care (01) | DRG 560 ==
PROVIDERS: Admitting Provider Obstetrics & Gynecology; Visit Provider Obstetrics & Gynecology
DX: O66.0 Obstructed labor due to shoulder dystocia (principal); O70.1 Second degree perineal laceration during delivery; O69.81X0 Labor and delivery complicated by cord around neck, without compression, not applicable or unspecified; Z3A.39 39 weeks gestation of pregnancy; Z37.0 Single live birth
CPT/HCPCS: 59025; 59050; 85025; 86850; 86900; 86901; 99218; J7120; G0378